=== PATIENT | male | born 1930 | race Caucasian/White ===

== ENCOUNTER 2016-09-24 12:13 | Inpatient (IN) | payer MEDICARE ==
--- NOTE | ~2016-09-24 | CN ---
Consultation Report [facility] [address] [place]. [address] NAME: FELIPE DIETRICH : [birth year] STATUS : ADM Kristal PAT#: [id number] AGE: 86 ADM/REG DATE : 09/24/16 MR#: [id number] REPORT SERV DATE: 09/24/16 DICTATED BY: SEBASTIAN DOAN DATE: 09/24/16 REPORT STATUS : Draft TRANSCRIBED BY: MODL DATE: 09/24/16 DATE OF CONSULTATION: CVD PHYSICIAN: Marcello Raymond M.D. (changing from Dr. Shaver). REASON FOR CONSULTATION: Mr. Felipe Dietrich is an 86-year-old male who was referred for chest discomfort and positive troponin. HISTORY OF PRESENT ILLNESS: Mr. Felipe Dietrich was noted to have iron deficiency anemia. This is in light of a previously known bleeding duodenal ulcer. He underwent colonoscopy today and was found to have AVM. Of note, this morning for the first time in many years, he had some chest pain while taking out the garbage. This lasted for approximately 10 minutes and resolved on its own. Today after the colonoscopy, he again had chest discomfort without EKG changes, but mildly elevated troponin. REVIEW OF SYSTEMS: Negative for exertional chest discomfort for many years. No history of PND, SMYTH, palpitations, syncope or presyncope. This morning, there was no associated diaphoresis, nausea, vomiting, or shortness breath. PAST MEDICAL HISTORY: 1. Coronary artery disease status post CABG in 1997. Most recent stress test in 2008 showed no evidence of ischemia. 2. Hypercholesterolemia, but unable to tolerate statin due to abnormal liver function. 3. Hypertension, longstanding. SOCIAL HISTORY: He does not drink or smoke. Family is in attendance. FAMILY HISTORY: Negative for early heart disease. PHYSICAL EXAMINATION: VITAL SIGNS: Blood pressure is 129/59, pulse is 93, oxygen saturation 98%. GENERAL: Resting comfortably, nutritional status appears adequate. EYES: PERRLA. LUNGS: No labored use of accessory muscles. Without rales or wheezes. COR: PMI is not displaced. No thrills or heaves. NL S1 and S2. No S3. A systolic ejection murmur heard along the left sternal border approximately 2/6. PULSES: Carotids without bruits. ABD: +BS, nontender. EXT: No cyanosis, clubbing or edema. SKIN: No petechiae. NEURO: Alert and oriented. Does not appear anxious or depressed. LABORATORY EVALUATION: EKG interpreted by me shows no acute changes. Troponin is noted to be mildly elevated. His renal function is also noted to be mildly elevated. Consultation Report [facility] [id number] [place]. [address] NAME: FELIPE DIETRICH : 34 STATUS : ADM Kristal PAT#: [id number] AGE: 86 ADM/REG DATE : 09/24/16 MR#: [id number] REPORT SERV DATE: 09/24/16 DICTATED BY: SEBASTIAN DOAN DATE: 09/24/16 REPORT STATUS : Draft TRANSCRIBED BY: ESTELLA DATE: 09/24/16 ASSESSMENT AND PLAN: At this time, we will admit for observation. We will obtain serial enzymes. If positive, may consider arteriogram without ventriculogram due to renal insufficiency. If they remain constant, will consider stress test in the morning. We will also obtain an echocardiogram for further evaluation of a systolic murmur. JASEN/ESTELLA Sebastian Doan M.D. / [id number] CC: Jared Zamudio M.D.
--- NOTE | ~2016-09-24 | EGD ---
EGD REPORT [facility] [address] [address] NAME: FELIPE DIETRICH : 34 STATUS : REG [facility]#: [id number] AGE: 86 ADM/REG DATE : 09/24/16 MR#: [id number] REPORT SERV DATE: 09/24/16 DICTATED BY: FRANNY VEGAS DATE: 09/24/16 REPORT STATUS : Draft TRANSCRIBED BY: [facility] DATE: 09/24/16 Endoscopy Center Patient Name: Felipe Dietrich Date of : 1930 Attending MD: FRANNY VEGAS MD Procedure Date No Time: 09/24/2016 Procedure: Upper GI endoscopy Indications: Iron deficiency anemia Referring MD: WAGNER ALANIZ MD Medicines: See the Anesthesia note for documentation of the administered medications Complications: No immediate complications. Procedure: Pre-Anesthesia Assessment: - ASA Grade Assessment: III - A patient with severe systemic disease. After obtaining informed consent, the endoscope was passed under direct vision. Throughout the procedure, the patient's blood pressure, pulse, and oxygen saturations were monitored continuously. The GIF H190 [id number] was introduced through the mouth, and advanced to the third part of duodenum. The upper GI endoscopy was accomplished without difficulty. The patient tolerated the procedure well. Findings: The 2nd part of the duodenum was normal. Biopsies were taken with a cold forceps for histology. The entire examined stomach was normal. The cardia and gastric fundus were normal on retroflexion. A small hiatus hernia was present. A non-obstructing Schatzki ring (acquired) was found at the gastroesophageal junction. Impression: - Normal 2nd part of the duodenum. Biopsied. - Normal stomach. - Hiatus hernia. - Non-obstructing Schatzki ring. Recommendation: - Patient has a contact number available for emergencies. The signs and symptoms of potential delayed complications were discussed with the patient. Return to normal activities tomorrow. Written discharge instructions were provided to the patient. - Regular diet. - Continue present medications. EGD REPORT [address] [place]. [address] NAME: FELIPE DIETRICH : 34 STATUS : REG [facility]#: [id number] AGE: 86 ADM/REG DATE : 09/24/16 MR#: [id number] REPORT SERV DATE: 09/24/16 DICTATED BY: FRANNY VEGAS DATE: 09/24/16 REPORT STATUS : Draft TRANSCRIBED BY: [employer] DATE: 09/24/16 - FOR YOUR BIOPSY RESULTS: Please go to [email or web address] and register to receive your results via the portal. Your biopsy results will be posted there in about 7 to 10 days. IF you do not see result in 10 days, call office. Procedure Code(s): --- Professional --- 89716, Esophagogastroduodenoscopy, flexible, transoral; with biopsy, single or multiple Diagnosis Code(s): --- Professional --- K44.9, Diaphragmatic hernia without obstruction or gangrene K22.2, Esophageal obstruction D50.9, Iron deficiency anemia, unspecified CPT copyright 2013 [employer]. All rights reserved. The codes documented in this report are preliminary and upon calciner operator helper review may be revised to meet current compliance requirements. Franny Vegas MD FRANNY VEGAS MD 09/24/2016 1:10 PM This report has been signed electronically. Number of Addenda: 0 Note Initiated On: 09/24/2016 1:01 PM Scope Withdrawal Time 0 hours 0 minutes 0 seconds [address] [address]
--- NOTE | ~2016-09-24 | EGD ---
EGD REPORT [facility] [address] [address] NAME: FELIPE DIETRICH : 32 STATUS : REG [facility]#: [id number] AGE: 86 ADM/REG DATE : 09/24/16 MR#: [id number] REPORT SERV DATE: 09/24/16 DICTATED BY: FRANNY VEGAS DATE: 09/24/16 REPORT STATUS : Draft TRANSCRIBED BY: [employer] DATE: 09/24/16 Endoscopy Center Patient Name: Felipe Dietrich Date of : 1930 Attending MD: FRANNY VEGAS MD Procedure Date No Time: 09/24/2016 Procedure: Colonoscopy Indications: Iron deficiency anemia, (Last colon 08/2014) Referring MD: WAGNER ALANIZ MD Medicines: See the Anesthesia note for documentation of the administered medications Complications: No immediate complications. Procedure: Pre-Anesthesia Assessment: - ASA Grade Assessment: III - A patient with severe systemic disease. After I obtained informed consent, the scope was passed under direct vision. Throughout the procedure, the patient's blood pressure, pulse, and oxygen saturations were monitored continuously. The [facility] [id number] was introduced through the anus and advanced to the cecum, identified by appendiceal orifice and ileocecal valve. The colonoscopy was performed without difficulty. The patient tolerated the procedure well. The quality of the bowel preparation was adequate. MIn fecal debris. Findings: The perianal and digital rectal examinations were normal. Diverticula were found in the sigmoid colon. Internal hemorrhoids were found during retroflexion and were large. Impression: - Diverticulosis in the sigmoid colon. - Internal hemorrhoids. Recommendation: - Patient has a contact number available for emergencies. The signs and symptoms of potential delayed complications were discussed with the patient. Return to normal activities tomorrow. Written discharge instructions were provided to the patient. - Regular diet. - Continue present medications. - Repeat colonoscopy is not recommended for surveillance. - Follow up with Dr Vegas or his nurse practitioner in 6 weeks Procedure Code(s): --- Professional --- EGD REPORT [address] [address] NAME: FELIPE DIETRICH : 34 STATUS : REG [facility]#: [id number] AGE: 86 ADM/REG DATE : 09/24/16 MR#: [id number] REPORT SERV DATE: 09/24/16 DICTATED BY: FRANNY VEGAS DATE: 09/24/16 REPORT STATUS : Draft TRANSCRIBED BY: [email or web address] DATE: 09/24/16 [id number], Colonoscopy, flexible, proximal to splenic flexure; diagnostic, with or without collection of specimen(s) by brushing or washing, with or without colon decompression (separate procedure) Diagnosis Code(s): --- Professional --- K64.8, Other hemorrhoids K57.30, Diverticulosis of large intestine without perforation or abscess without bleeding D50.9, Iron deficiency anemia, unspecified CPT copyright 2013 [employer]. All rights reserved. The codes documented in this report are preliminary and upon military pay clerk review may be revised to meet current compliance requirements. Franny Vegas MD FRANNY VEGAS MD 09/24/2016 1:34 PM This report has been signed electronically. Number of Addenda: 0 Note Initiated On: 09/24/2016 12:58 PM Scope Withdrawal Time 0 hours 13 minutes 14 seconds [address] [id number]
[~2016-09-24 12:13] MED LIST: ACET500CAP PO; ALEVE220 MG PO; AMBIEN CR12.5 MG PO; ASA5GR OR; ASAB PO; ATEN50 PO; B12100T PO; BENICAR20 PO; COQ-10200 MG PO; COREG12 PO; COREG6 PO; DIOVAN HCT160 MG/25 PO; DIOVAN320 MG PO; FISH-EPA1000 MG PO; FLOMAX4 PO; HYT2 PO; ICAPS MV PO; LOFIBRA160 MG PO; LOFIBRA200 MG PO; LUNESTA1 MG PO; LYRICA75 PO; MAGNESIUM PO; MAGTRATE500 MG PO; MSCONTIN PO; MULTIPLE VIT PO; NEUR300 PO; NORV10 PO; PCET OR; PCET PO; PR25 PO; PRAVAC PO; PRAVACHOL40 MG PO; PREVALITE4 G1 PO; PRILO PO; PRILOSEC40 MG PO; PROSCAR5 PO; PROTONIX PO; RED YEAST RICE; REFRESH OPH SO0.3 ML OPH; T PO; VITAMIN B-121000 MC1 SL; VITAMIN D1000 UNI1 PO; VITD PO
[2016-09-24 19:08] LABS: BASOPHILS 0.5 %; BASOPHILS ABSOLUTE 0.02 10/3/uL (0.0-0.16); EOSINOPHILS 2.6 %; HEMATOCRIT 31.9 % (40.0-51.0); HEMOGLOBIN 10.9 g/dL (13.6-17.8); IMMATURE GRANULOCYTES 0.3 %; IMMATURE GRANULOCYTES ABSOLUTE 0.01 10/3/uL (0.0-0.11); LYMPHOCYTES 17.4 %; LYMPHOCYTES ABSOLUTE 0.68 10/3/uL (0.67-4.30); MANUAL DIFF NO %; MEAN CORPUS HGB CONC 34.2 g/dL (32.0-36.0); MEAN CORPUSCULAR HEMOGLOB 30.9 pg (26.0-34.0); MEAN CORPUSCULAR VOLUME 90.4 fL (80-100); MEAN PLATELET VOLUME 9.7 fL (9.2-13.0); MONOCYTES 9.5 %; MONOCYTES ABSOLUTE 0.37 10/3/uL (0.21-1.20); NEUTROPHILS 69.7 %; NEUTROPHILS ABSOLUTE 2.73 10/3/uL (2.02-8.40); PLATELET COUNT 185 10/3/uL (150-400); RBC DISTRIBUTION WIDTH 14.6 % (12.0-16.0); RED CELL COUNT 3.53 10/6/uL (4.7-6.1); WHITE BLOOD CELLS 3.9 10/3/uL (4.5-10.5)
[2016-09-24 20:04] LABS: CHLORIDE, SERUM 108 MMOL/L (96-112); CO2 (CARBON DIOXIDE) 22 MMOL/L (24-34); CREATININE 1.69 MG/DL (0.70-1.30); GFR AFRICAN AMERICAN 42 ML/MIN (>=60); GFR NON AFRICAN AMERICAN 36 ML/MIN (>=60); GLUCOSE, SERUM 97 MG/DL (60-99); SODIUM, SERUM 140 MMOL/L (135-148)
[2016-09-24 20:05] LABS: BUN (BLOOD UREA NITROGEN) 28 MG/DL (6-23)
[2016-09-25 12:16] LABS: BASOPHILS 0.3 %; BASOPHILS ABSOLUTE 0.01 10/3/uL (0.0-0.16); EOSINOPHILS 5.2 %; HEMATOCRIT 32.9 % (40.0-51.0); HEMOGLOBIN 11.5 g/dL (13.6-17.8); IMMATURE GRANULOCYTES 0.5 %; IMMATURE GRANULOCYTES ABSOLUTE 0.02 10/3/uL (0.0-0.11); LYMPHOCYTES 21.2 %; LYMPHOCYTES ABSOLUTE 0.82 10/3/uL (0.67-4.30); MEAN CORPUSCULAR HEMOGLOB 31.5 pg (26.0-34.0); MEAN CORPUSCULAR VOLUME 90.1 fL (80-100); MEAN PLATELET VOLUME 9.2 fL (9.2-13.0); MONOCYTES ABSOLUTE 0.35 10/3/uL (0.21-1.20); NEUTROPHILS 63.8 %; NEUTROPHILS ABSOLUTE 2.47 10/3/uL (2.02-8.40); PLATELET COUNT 177 10/3/uL (150-400); RBC DISTRIBUTION WIDTH 14.7 % (12.0-16.0); RED CELL COUNT 3.65 10/6/uL (4.7-6.1); WHITE BLOOD CELLS 3.9 10/3/uL (4.5-10.5)
[2016-09-25 12:18] LABS: MANUAL DIFF NO %
[2016-09-25 12:34] LABS: BUN (BLOOD UREA NITROGEN) 27 MG/DL (6-23); CALCIUM, SERUM 9.1 MG/DL (8.5-10.4); CHLORIDE, SERUM 108 MMOL/L (96-112); CREATININE 1.65 MG/DL (0.70-1.30); GFR AFRICAN AMERICAN 44 ML/MIN (>=60); GFR NON AFRICAN AMERICAN 38 ML/MIN (>=60); GLUCOSE, SERUM 99 MG/DL (60-99); POTASSIUM, SERUM 4.3 MMOL/L (3.5-5.3); SODIUM, SERUM 142 MMOL/L (135-148)
[2016-09-25 12:35] LABS: CO2 (CARBON DIOXIDE) 30 MMOL/L (24-34); TROPONIN I 0.14 NG/ML (<0.05)
[2016-09-25 13:08] LABS: INTERNATIONAL NORMAL RATI 1.3 UNITS (-); PROTIME (NOT ORD) 15.6 SEC (12.0-14.5)
[2016-09-25 13:09] LABS: PARTIAL THROMBO TIME 34.1 SEC (22.5-37.2)
[2016-09-25 14:37] LABS: WBC (NOT ORDERED) (RFLEX) 0 (0-5)
[2016-09-25 16:02] LABS: ASCORBIC ACID (UR NOT ORDER) NEG (NEG); BILIRUBIN, URINE NEGATIVE (NEG); KETONE, URINE NEGATIVE (NEG); LEUKOCYTE ESTERASE(NOT OR NEG (NEG)
[2016-09-26 04:06] LABS: BASOPHILS 0.6 %; BASOPHILS ABSOLUTE 0.02 10/3/uL (0.0-0.16); EOSINOPHILS 8.8 %; HEMATOCRIT 30.1 % (40.0-51.0); HEMOGLOBIN 10.3 g/dL (13.6-17.8); IMMATURE GRANULOCYTES 0.3 %; IMMATURE GRANULOCYTES ABSOLUTE 0.01 10/3/uL (0.0-0.11); LYMPHOCYTES 24.6 %; LYMPHOCYTES ABSOLUTE 0.84 10/3/uL (0.67-4.30); MEAN CORPUS HGB CONC 34.2 g/dL (32.0-36.0); MEAN CORPUSCULAR HEMOGLOB 31.2 pg (26.0-34.0); MEAN CORPUSCULAR VOLUME 91.2 fL (80-100); MEAN PLATELET VOLUME 9.4 fL (9.2-13.0); MONOCYTES 9.6 %; MONOCYTES ABSOLUTE 0.33 10/3/uL (0.21-1.20); NEUTROPHILS 56.1 %; NEUTROPHILS ABSOLUTE 1.92 10/3/uL (2.02-8.40); PLATELET COUNT 154 10/3/uL (150-400); RBC DISTRIBUTION WIDTH 15.1 % (12.0-16.0); WHITE BLOOD CELLS 3.4 10/3/uL (4.5-10.5)
[2016-09-26 04:08] LABS: MANUAL DIFF NO %
[2016-09-26 04:22] LABS: BUN (BLOOD UREA NITROGEN) 25 MG/DL (6-23); CALCIUM, SERUM 8.3 MG/DL (8.5-10.4); CHLORIDE, SERUM 111 MMOL/L (96-112); CO2 (CARBON DIOXIDE) 29 MMOL/L (24-34); CREATININE 1.57 MG/DL (0.70-1.30); GFR AFRICAN AMERICAN 46 ML/MIN (>=60); GFR NON AFRICAN AMERICAN 40 ML/MIN (>=60); POTASSIUM, SERUM 4.6 MMOL/L (3.5-5.3); SODIUM, SERUM 144 MMOL/L (135-148)
[2016-09-26 04:24] LABS: GLUCOSE, SERUM 125 MG/DL (60-99); TROPONIN I 0.07 NG/ML (<0.05)
[2016-09-27 04:13] LABS: BASOPHILS 0.6 %; BASOPHILS ABSOLUTE 0.02 10/3/uL (0.0-0.16); EOSINOPHILS 9.1 %; EOSINOPHILS ABSOLUTE 0.29 10/3/uL (0.0-0.53); HEMATOCRIT 32.4 % (40.0-51.0); HEMOGLOBIN 10.9 g/dL (13.6-17.8); IMMATURE GRANULOCYTES 0.3 %; IMMATURE GRANULOCYTES ABSOLUTE 0.01 10/3/uL (0.0-0.11); LYMPHOCYTES 28.6 %; LYMPHOCYTES ABSOLUTE 0.91 10/3/uL (0.67-4.30); MEAN CORPUS HGB CONC 33.6 g/dL (32.0-36.0); MEAN CORPUSCULAR HEMOGLOB 30.9 pg (26.0-34.0); MEAN CORPUSCULAR VOLUME 91.8 fL (80-100); MEAN PLATELET VOLUME 9.1 fL (9.2-13.0); MONOCYTES 8.2 %; MONOCYTES ABSOLUTE 0.26 10/3/uL (0.21-1.20); NEUTROPHILS 53.2 %; NEUTROPHILS ABSOLUTE 1.69 10/3/uL (2.02-8.40); PLATELET COUNT 155 10/3/uL (150-400); RED CELL COUNT 3.53 10/6/uL (4.7-6.1); WHITE BLOOD CELLS 3.2 10/3/uL (4.5-10.5)
[2016-09-27 04:15] LABS: MANUAL DIFF NO %
[2016-09-27 04:21] LABS: INTERNATIONAL NORMAL RATI 1.2 UNITS (-); PROTIME (NOT ORD) 15.5 SEC (12.0-14.5)
[2016-09-27 04:34] LABS: BUN (BLOOD UREA NITROGEN) 25 MG/DL (6-23); CHLORIDE, SERUM 111 MMOL/L (96-112); CHOL/HDL RATIO(NOT ORDER) 2.9 (0-5); CHOLESTEROL 101 MG/DL (< 200); CREATININE 1.32 MG/DL (0.70-1.30); GFR AFRICAN AMERICAN 57 ML/MIN (>=60); GFR NON AFRICAN AMERICAN 49 ML/MIN (>=60); GLUCOSE, SERUM 100 MG/DL (60-99); HDL CHOLESTEROL 35 MG/DL (> 39); LDL CHOLESTEROL 52 MG/DL (< 130); NON-HDL CHOLESTEROL 66 MG/DL (< 160); POTASSIUM, SERUM 4.3 MMOL/L (3.5-5.3); SODIUM, SERUM 144 MMOL/L (135-148); TRIGLYCERIDE 72 MG/DL (< 150); TROPONIN I 0.04 NG/ML (<0.05)
[2016-09-27 04:36] LABS: CK-MB 4.3 NG/ML; CO2 (CARBON DIOXIDE) 24 MMOL/L (24-34); CPK 99 U/L (0-200)
[2016-09-28 03:19] LABS: BASOPHILS 0.3 %; BASOPHILS ABSOLUTE 0.01 10/3/uL (0.0-0.16); EOSINOPHILS 9.6 %; EOSINOPHILS ABSOLUTE 0.31 10/3/uL (0.0-0.53); HEMATOCRIT 31.3 % (40.0-51.0); HEMOGLOBIN 10.5 g/dL (13.6-17.8); IMMATURE GRANULOCYTES 0.3 %; IMMATURE GRANULOCYTES ABSOLUTE 0.01 10/3/uL (0.0-0.11); MEAN CORPUS HGB CONC 33.5 g/dL (32.0-36.0); MEAN CORPUSCULAR HEMOGLOB 30.6 pg (26.0-34.0); MEAN CORPUSCULAR VOLUME 91.3 fL (80-100); MEAN PLATELET VOLUME 9.7 fL (9.2-13.0); MONOCYTES 8.7 %; MONOCYTES ABSOLUTE 0.28 10/3/uL (0.21-1.20); NEUTROPHILS 50.1 %; NEUTROPHILS ABSOLUTE 1.62 10/3/uL (2.02-8.40); PLATELET COUNT 165 10/3/uL (150-400); RBC DISTRIBUTION WIDTH 14.8 % (12.0-16.0); RED CELL COUNT 3.43 10/6/uL (4.7-6.1); WHITE BLOOD CELLS 3.2 10/3/uL (4.5-10.5)
[2016-09-28 03:20] LABS: MANUAL DIFF NO %
[2016-09-28 03:26] LABS: INTERNATIONAL NORMAL RATI 1.2 UNITS (-); PARTIAL THROMBO TIME 58.6 SEC (22.5-37.2); PROTIME (NOT ORD) 14.7 SEC (12.0-14.5)
[2016-09-28 03:59] LABS: BUN (BLOOD UREA NITROGEN) 28 MG/DL (6-23); CHLORIDE, SERUM 110 MMOL/L (96-112); CHOL/HDL RATIO(NOT ORDER) 2.8 (0-5); CHOLESTEROL 95 MG/DL (< 200); CO2 (CARBON DIOXIDE) 25 MMOL/L (24-34); CPK 112 U/L (0-200); CREATININE 1.38 MG/DL (0.70-1.30); GFR AFRICAN AMERICAN 54 ML/MIN (>=60); GFR NON AFRICAN AMERICAN 47 ML/MIN (>=60); GLUCOSE, SERUM 99 MG/DL (60-99); HDL CHOLESTEROL 34 MG/DL (> 39); LDL CHOLESTEROL 44 MG/DL (< 130); NON-HDL CHOLESTEROL 61 MG/DL (< 160); POTASSIUM, SERUM 4.6 MMOL/L (3.5-5.3); SODIUM, SERUM 145 MMOL/L (135-148); TRIGLYCERIDE 86 MG/DL (< 150); TROPONIN I 0.04 NG/ML (<0.05)
[2016-09-28 04:00] LABS: CK-MB 4.3 NG/ML
[2016-09-28] MEDS ORDERED: LIPITOR40 PO (16:34)
[2016-09-28] MEDS ORDERED: NITROSTAT0.4 MG SL (16:35)
== END 2016-09-28 18:08 | disposition home or self-care (01) | DRG 282 ==
LOC: DMU 12:13 → CDU2 16:31 → 5NO 09-25 16:20
PROVIDERS: Internal Medicine; Internal Medicine Cardiovascular Disease; Internal Medicine Clinical Cardiac Electrophysiology; Nurse Practitioner Family
PROC: 0DJD8ZZ Inspection of Lower Intestinal Tract, Via Natural or Artificial Opening Endoscopic (ICD-10-PCS; 2016-09-24)
PROC: 0DB98ZX Excision of Duodenum, Via Natural or Artificial Opening Endoscopic, Diagnostic (ICD-10-PCS; 2016-09-24)
PROC: 4A023N7 Measurement of Cardiac Sampling and Pressure, Left Heart, Percutaneous Approach (ICD-10-PCS; principal; 2016-09-28)
PROC: B2111ZZ Fluoroscopy of Multiple Coronary Arteries using Low Osmolar Contrast (ICD-10-PCS; 2016-09-28)
PROC: B2181ZZ Fluoroscopy of Left Internal Mammary Bypass Graft using Low Osmolar Contrast (ICD-10-PCS; 2016-09-28)
PROC: B2161ZZ Fluoroscopy of Right and Left Heart using Low Osmolar Contrast (ICD-10-PCS; 2016-09-28)
DX: I21.4 Non-ST elevation (NSTEMI) myocardial infarction (principal); I73.9 Peripheral vascular disease, unspecified; K22.2 Esophageal obstruction; N18.3 Chronic kidney disease, stage 3 (moderate); I25.10 Atherosclerotic heart disease of native coronary artery without angina pectoris; Z95.1 Presence of aortocoronary bypass graft; Z88.0 Allergy status to penicillin; D50.9 Iron deficiency anemia, unspecified; I12.9 Hypertensive chronic kidney disease with stage 1 through stage 4 chronic kidney disease, or unspecified chronic kidney disease; K57.30 Diverticulosis of large intestine without perforation or abscess without bleeding; K44.9 Diaphragmatic hernia without obstruction or gangrene; K64.8 Other hemorrhoids
CPT/HCPCS: 71010; 80048; 80061; 81001; 82550; 82553; 83735; 84484; 85025; 85610; 85730; 88305; 93005; 93459; 99152; 99153; A9270-GY; C1760; C1769; C8929; J2250; J3010; Q9957; Q9967